=== PATIENT | female | born 1965 | race Caucasian/White ===

== ENCOUNTER 2017-04-10 00:05 | Emergency (ER) | payer MEDICAID ==
[2017-04-10 00:06] VITALS: BMI 22.3
[2017-04-10 00:13] VITALS: TEMP 97.9
[2017-04-10 00:15] VITALS: RESP 14
--- NOTE | 2017-04-10 00:18 | C.PDOC ---
History Of Present Illness pt was cleaning with Clorox , and inhaled some, causing her to choke and feel short of breath. Pt speaking in complete sentences, Tolerating her own secretion. Time Seen by Provider: 04/10/17 00:18 Chief Complaint (Nursing): Shortness Of Breath History Per: Patient History/Exam Limitations: no limitations Onset/Duration Of Symptoms: Mins Current Symptoms Are (Timing): Better Initiating Event: Other (exposure to chlorax) Quality: Tightness Exacerbating Factor(s): Coughing Current Respiratory Medications: See Home Med List Severity: Moderate Pain Scale Rating Of: 4 Associated Symptoms: denies: Fever, Chills, Sweating, Chest Pain Recent travel outside of the [place]: No Additional History Per: Family Past Medical History Reviewed: Historical Data, Nursing Documentation, Vital Signs Vital Signs: Last Vital Signs Temp 97.9 F 04/10/17 00:07 Pulse 79 04/10/17 00:07 Resp 14 04/10/17 00:14 BP 160/64 H 04/10/17 00:07 Pulse Ox 100 04/10/17 00:43 - Medical History PMH: Anxiety, Arthritis, Depression, Fibromyalgia, HTN Denies: Chronic Kidney Disease Family History: States: No Known Family Hx - Social History Hx Tobacco Use: No Hx Alcohol Use: No Hx Substance Use: No - Immunization History Hx Tetanus Toxoid Vaccination: No Hx Influenza Vaccination: No Hx Pneumococcal Vaccination: No Review Of Systems Constitutional: Negative for: Fever, Chills Eyes: Negative for: Redness ENT: Negative for: Throat Pain Cardiovascular: Negative for: Chest Pain Respiratory: Positive for: Shortness of Breath. Negative for: Wheezing Gastrointestinal: Negative for: Nausea, Vomiting Physical Exam - Physical Exam Appears: Non-toxic Skin: Warm, Dry Head: Normacephalic Eye(s): bilateral: Normal Inspection, PERRL, EOMI Nose: No Flaring Oral Mucosa: Moist Tongue: Normal Appearing Lips: Normal Appearing Throat: No Erythema, No Exudate, No Drooling Neck: Supple Chest: Symmetrical Cardiovascular: Rhythm Regular Respiratory: No Rales, No Rhonchi, No Wheezing Neurological/Psych: Oriented x3 ED Course And Treatment O2 Sat by Pulse Oximetry: 100 Pulse Ox Interpretation: Normal Reevaluation Time: 01:55 Reassessment Condition: Improved Disposition Counseled Patient/Family Regarding: Studies Performed, Diagnosis, Need For Followup, Rx Given - Disposition Referrals: [facility] [Outside] Disposition: HOME/ ROUTINE Disposition Time: 00:18 Condition: FAIR Prescriptions: Albuterol HFA [Ventolin HFA 90 mcg/actuation (8 g)] 2 puff IH [id number] #1 puff Instructions: Reactive Airways Disease (DC) Forms: [facility] (Icelandic) Print Language: K[place] - Clinical Impression Clinical Impression: Reactive airway disease, Chemical exposure
[2017-04-10] MEDS ORDERED: Albuterol-Ipratrop 3 mg / 0.5 (3 ml) UD ONE (00:38)
[2017-04-10] MEDS: Albuterol-Ipratrop 3 mg / 0.5 (3 ml) UD IH SCH ×2 (00:41→01:00)
[2017-04-10 02:15] VITALS: BP 120/70; PULSE 70; O2SAT 97
== END 2017-04-10 02:15 | disposition home or self-care (01) ==
LOC: C.ER 00:05
DX: J45.909 Unspecified asthma, uncomplicated (principal); Z77.098 Contact with and (suspected) exposure to other hazardous, chiefly nonmedicinal, chemicals

== ENCOUNTER 2019-01-04 14:02 | Emergency (ER) | payer MEDICAID ==
[2019-01-04 14:02] VITALS: BMI 22.3
[2019-01-04 14:26] VITALS: BP 125/86; PULSE 74; RESP 20; TEMP 97.6; O2SAT 100
[2019-01-04] MEDS ORDERED: Naproxen 550 mg Tab PO STA (14:50)
[2019-01-04] MEDS ORDERED: Lidocaine 5% Patch TD STA (14:50)
[2019-01-04] MEDS ORDERED: Lidocaine 5% Patch TD ONE (14:54)
[2019-01-04] MEDS ORDERED: Naproxen 550 mg Tab PO ONE (14:54)
--- NOTE | 2019-01-04 14:59 | C.PDOC ---
History Of Present Illness 53 year old female, whose PMHx includes osteoarthritis and herniated disc in cervical and lumbar spine, presents to the ED for evaluation of lower back and bilateral knee pain for one week. Patient states she is visiting from [place] and is typically given Cortisone injections and codeine for her pain. Patient states her pain has been progressively worsening. She states pain is 7/10 in severity and worse when she lays down. Patient denies any direct trauma/injury to the area, fever, chills, urinary/bowle incontinence, extremity numbness/weakness or tingling. Chief Complaint (Nursing): Back Pain History Per: Patient History/Exam Limitations: no limitations Onset/Duration Of Symptoms: Days Current Symptoms Are (Timing): Still Present Quality Of Discomfort: "Pain" Previous Symptoms: Back Pain Associated Symptoms: denies: Incontinence, New Weakness, New Numbness Exacerbating Factor(s): Other (laying down ) Past Medical History Reviewed: Historical Data, Nursing Documentation, Vital Signs Vital Signs: Last Vital Signs Temp 97.6 F 01/04/19 14:23 Pulse 74 01/04/19 14:23 Resp 20 01/04/19 14:23 BP 125/86 01/04/19 14:23 Pulse Ox 100 01/04/19 14:23 Primary Care Provider: Non [facility] Provider, - Medical History PMH: Anxiety, Arthritis, Depression, Fibromyalgia, HTN Denies: Chronic Kidney Disease Surgical History: No Surg Hx Family History: States: Unknown Family Hx - Social History Hx Tobacco Use: No Hx Alcohol Use: No Hx Substance Use: No - Immunization History Hx Tetanus Toxoid Vaccination: Yes Hx Influenza Vaccination: No Hx Pneumococcal Vaccination: No Review Of Systems Constitutional: Negative for: Fever, Chills, Weakness Cardiovascular: Negative for: Chest Pain Respiratory: Negative for: Shortness of Breath Genitourinary: Negative for: Incontinence Musculoskeletal: Positive for: Back Pain, Other (bilateral knee pain ) Neurological: Negative for: Numbness, Headache, Dizziness Physical Exam - Physical Exam Appears: Non-toxic, No Acute Distress Skin: Normal Color, Warm, Dry Head: Atraumatic, Normacephalic Oral Mucosa: Moist Neck: Supple Chest: Symmetrical, No Deformity, No Tenderness Cardiovascular: Rhythm Regular, No Murmur Respiratory: Normal Breath Sounds, No Rales, No Rhonchi, No Wheezing Back: Vertebral Tenderness (lumbar ), Decreased ROM (limited flexion secondary to pain ), No Other (ecchymosis, erythema or edema ) Extremity: Normal ROM (bilateral knees ), Tenderness (around patella on palpation ), No Pedal Edema, No Calf Tenderness, Capillary Refill (less than 2 seconds ), No Deformity, No Swelling, No Other (ecchymosis, erythema or edema to bilateral knees ) Extremity: Left: Normal Color And Temperature Pulses: Left Dorsalis Pedis: Normal, Right Dorsalis Pedis: Normal Neurological/Psych: Oriented x3, Normal Speech, Normal Cognition, Normal Motor, Normal Sensation ED Course And Treatment O2 Sat by Pulse Oximetry: 100 (on RA) Pulse Ox Interpretation: Normal Medical Decision Making Medical Decision Making: Impression: 53 year old female with lower back pain and knee pain Plan: * Flexeril PO, Naproxen PO and Lidoderm patch administered. On reassessment, patient is resting comfortably, showing no signs of distress, and reports an improvement in his symptoms. Patient is ambulatory in the ED without distress and is stable for discharge. Advised to f/u with her PMD within 1-2 days for further evaluation and to continue prescribed meds. Disposition Counseled Patient/Family Regarding: Diagnosis, Need For Followup, Rx Given - Disposition Referrals: Non [facility] Provider, [Non-Staff] - Disposition: HOME/ ROUTINE Disposition Time: 14:59 Condition: IMPROVED Additional Instructions: continue meds as instructed Flexeril may make you drowsy so avoid driving follow up with pain management - MRI may be warranted return to the ED if symptoms worsen Prescriptions: Cyclobenzaprine [Flexeril] 10 mg PO TID PRN #15 tab PRN Reason: Muscle Spasm Lidocaine 5% [Lidoderm] 1 ea TD PRN PRN #30 patch PRN Reason: Pain, Moderate (4-7) Naproxen [Naprosyn] 500 mg PO BID #30 tablet Instructions: Chronic Pain (DC), Osteoarthritis (DC), Arthritis and Exercise Forms: [facility] (Estonian) - Clinical Impression Clinical Impression: Low back pain, Arthritis, Herniated disc - 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 - Scribe Statement The provider has reviewed the documentation as recorded by the Scribe (Laly England) All medical record entries made by the Scribe were at my direction and perso lala dictated by me. I have reviewed the chart and agree that the record accurately reflects my personal performance of the history, physical exam, medical decision making, and the department course for this patient. I have also personally directed, reviewed, and agree with the discharge instructions and disposition.
== END 2019-01-04 15:15 | disposition home or self-care (01) ==
LOC: C.ER 14:02
DX: M51.26 Other intervertebral disc displacement, lumbar region (principal); M17.0 Bilateral primary osteoarthritis of knee